=== PATIENT | male | born 1995 | race Asian ===

== ENCOUNTER 2021-02-25 23:01 | Emergency (ER) | payer BC ==
[2021-02-25 23:25] LABS: BASOPHILS % (AUTO) 1 % (0-10); EOSINOPHILS % (AUTO) 3 % (0-10); HEMATOCRIT 44 % (40-54); HEMOGLOBIN 15.3 G/DL (13.3-17.7); LYMPHOCYTES # (AUTO) 4.1 X 10^3 (1.0-4.0); LYMPHOCYTES % (AUTO) 43 % (12-44); MEAN CORPUSCULAR HEMOGLOBIN 30 PG (25-34); MEAN CORPUSCULAR HGB CONC 35 G/DL (32-36); MEAN CORPUSCULAR VOLUME 87 FL (80-99); MEAN PLATELET VOLUME 11.7 FL (7.4-10.4); MONOCYTES # (AUTO) 0.6 X 10^3 (0.0-1.0); MONOCYTES % (AUTO) 6 % (0-12); NEUTROPHILS # (AUTO) 4.3 X 10^3 (1.8-7.8); NEUTROPHILS % (AUTO) 46 % (42-75); PLATELET COUNT 188 10^3/uL (130-400); WHITE BLOOD COUNT 9.4 10^3/uL (4.3-11.0)
[2021-02-25 23:26] LABS: BASOPHILS # (AUTO) 0.1 10^3/uL (0.0-0.1); EOSINOPHILS # (AUTO) 0.2 10^3/uL (0.0-0.3)
[2021-02-25] MEDS ORDERED: PANTOPRAZOLE 40 MG (PROTONIX) VIAL IV STA (23:28)
[2021-02-25] MEDS ORDERED: NS IV 1000 ML 1,000 ML IV STA (23:28)
--- NOTE | 2021-02-25 23:30 | ED Chest Pain ---
General Chief Complaint: Chest Pain Stated Complaint: NUMBNESS IN RIGHT ARM/CHEST PAIN Nursing Triage Note: Pt complaining of chest pain with bilateral arm numbness and tingling Nursing Sepsis Screen: No Definite Risk Source: patient History of Present Illness Date Seen by Provider: Feb 25, 2021 Time Seen by Provider: 23:02 Initial Comments 25-year-old male presenting with complaints of pinching chest pain that has been intermittent throughout the day. He also had an episode earlier today where he had numbness in both arms and had to hide puller while he was driving because of the pain and numbness. He has had some similar symptoms in the past and was evaluated for them. At that time he was told that it was likely anxiety and panic attacks since he had no abnormal findings otherwise. He states he has heartburn symptoms in the morning. He denies any indigestion currently. He has not tried taking anything for the pinching sensation. He denies taking any prescription medications every day. He does take an occasional generic Zyrtec for allergies. He has had elevated blood pressure in the past but it was associated with anxiety and stress. Timing/Duration: 4-6 hours, intermittent Severity/Quality: mild Location: substernal, epigastric Activities at Onset: other (Driving) Prior CP/Workup: non-cardiac (Prior work-up was noncardiac and told that it was anxiety related) Modifying Factors: worse with movement ASA po MARKER MAKER: No NTG SL MARKER MAKER: No Associated Symptoms: No abdominal pain, No back pain, No diaphoresis; dizziness; No edema; fatigue; No fever/chills, No headache; heartburn (In the mornings but not currently); No nausea/vomiting, No rash, No shortness of breath, No swelling/lump in chest, No syncope Allergies and Home Medications Allergies Coded Allergies: No Known Drug Allergies (Unverified , 02/25/21) Patient Home Medication List Home Medication List Reviewed: Yes Review of Systems Review of Systems Constitutional: No chills, No fever EENTM: No Symptoms Reported Respiratory: No Symptoms Reported Cardiovascular: See HPI, Chest Pain (Pinching chest pain in the epigastric area that radiates over to his left lateral chest area) Gastrointestinal: See HPI Genitourinary: No Symptoms Reported Musculoskeletal: no symptoms reported Skin: no symptoms reported Psychiatric/Neurological: Anxiety; Denies Headache; Tingling (Tingling into camryn th arms earlier today while he was driving) Endocrine: No Symptoms Reported Hematologic/Lymphatic: No Symptoms Reported Past Edtvzmq-Fdwhsw-Eimyod Hx Past Med/Social Hx: Reviewed Nursing Past Med/Soc Hx Patient Social History Alcohol Use: Rarely Uses Smoking Status: Never a Smoker Recent Infectious Disease Expo: No Recent Hopitalizations: No Past Medical History Surgeries: No Respiratory: No Cardiac: No Neurological: No Genitourinary: No Gastrointestinal: No Musculoskeletal: No Endocrine: No HEENT: No Cancer: No Psychosocial: No Integumentary: No Physical Exam Vital Signs Vital Signs - First Documented 02/25/21 23:04 Temp 37.1 Pulse 118 Resp 18 B/P (MAP) 170/94 (119) Pulse Ox 100 O2 Delivery Room Air Capillary Refill : Less Than 3 Seconds Height, Weight, BMI Height: '" Weight: lbs. oz. kg; BMI Method: General Appearance: Anxious HEENT: PERRL/EOMI, Pharynx Normal Neck: Full Range of Motion, Non Tender, Supple Respiratory: Chest Non Tender, Lungs Clear, Normal Breath Sounds, No Accessory Muscle Use, No Respiratory Distress Cardiovascular: No Murmur, Normal Peripheral Pulses, Tachycardia Gastrointestinal: Normal Bowel Sounds, No Pulsatile Mass, Non Tender, Soft Rectal: Deferred Extremity: Normal Capillary Refill, No Pedal Edema Neurologic/Psychiatric: Alert, Oriented x3 Skin: Normal Color, Warm/Dry Progress/Results/Core Measures Results/Orders Lab Results Laboratory Tests Test 02/25/21 23:09 02/25/21 23:35 Range/Units White Blood Count 9.4 4.3-11.0 10^3/uL Red Blood Count 5.05 4.35-5.85 10^6/uL Hemoglobin 15.3 13.3-17.7 G/DL Hematocrit 44 40-54 % Mean Corpuscular Volume 87 80-99 FL Mean Corpuscular Hemoglobin 30 25-34 PG Mean Corpuscular Hemoglobin Concent 35 32-36 G/DL Red Cell Distribution Width 12.6 10.0-14.5 % Platelet Count 188 130-400 10^3/uL Mean Platelet Volume 11.7 H 7.4-10.4 FL Immature Granulocyte % (Auto) 1 % Neutrophils (%) (Auto) 46 42-75 % Lymphocytes (%) (Auto) 43 12-44 % Monocytes (%) (Auto) 6 0-12 % Eosinophils (%) (Auto) 3 0-10 % Basophils (%) (Auto) 1 0-10 % Neutrophils # (Auto) 4.3 1.8-7.8 X 10^3 Lymphocytes # (Auto) 4.1 H 1.0-4.0 X 10^3 Monocytes # (Auto) 0.6 0.0-1.0 X 10^3 Eosinophils # (Auto) 0.2 0.0-0.3 10^3/uL Basophils # (Auto) 0.1 0.0-0.1 10^3/uL Immature Granulocyte # (Auto) 0.1 0.0-0.1 10^3/uL Prothrombin Time 12.8 12.2-14.7 SEC INR Comment 0.9 0.8-1.4 Activated Partial Thromboplast Time 22 L 24-35 SEC D-Dimer 0.16 0.00-0.49 UG/ML Sodium Level 143 135-145 MMOL/L Potassium Level 4.8 3.6-5.0 MMOL/L Chloride Level 104 98-107 MMOL/L Carbon Dioxide Level 25 21-32 MMOL/L Anion Gap 14 5-14 MMOL/L Blood Urea Nitrogen 12 7-18 MG/DL Creatinine 1.14 0.60-1.30 MG/DL Estimat Glomerular Filtration Rate > 60 BUN/Creatinine Ratio 11 Glucose Level 113 H 70-105 MG/DL Calcium Level 10.3 H 8.5-10.1 MG/DL Corrected Calcium 8.5-10.1 MG/DL Magnesium Level 2.1 1.6-2.4 MG/DL Total Bilirubin 0.4 0.1-1.0 MG/DL Aspartate Amino Transf (AST/SGOT) 57 H 5-34 U/L Alanine Aminotransferase (ALT/SGPT) 85 H 0-55 U/L Alkaline Phosphatase 66 40-136 U/L Troponin I < 0.30 <0.30 NG/ML Pro-B-Type Natriuretic Peptide 33.1 <75.0 PG/ML Total Protein 7.8 6.4-8.2 GM/DL Albumin 4.9 H 3.2-4.5 GM/DL Lipase 26 8-78 U/L Urine Color YELLOW Urine Clarity CLEAR Urine pH 7.0 5-9 Urine Specific [place] 1.020 1.016-1.022 Urine Protein NEGATIVE NEGATIVE Urine Glucose (UA) NEGATIVE NEGATIVE Urine Ketones NEGATIVE NEGATIVE Urine Nitrite NEGATIVE NEGATIVE Urine Bilirubin NEGATIVE NEGATIVE Urine Urobilinogen 0.2 < = 1.0 MG/DL Urine Leukocyte Esterase NEGATIVE NEGATIVE Urine RBC (Auto) NEGATIVE NEGATIVE Urine RBC 0-2 /HPF Urine WBC 0-2 /HPF Urine Crystals NONE /LPF Urine Bacteria TRACE /HPF Urine Casts NONE /LPF Urine Mucus MODERATE H /LPF Urine Culture Indicated NO Urine Opiates Screen NEGATIVE NEGATIVE Urine Oxycodone Screen NEGATIVE NEGATIVE Urine Methadone Screen NEGATIVE NEGATIVE Urine Propoxyphene Screen NEGATIVE NEGATIVE Urine Barbiturates Screen NEGATIVE NEGATIVE Ur Tricyclic Antidepressants Screen NEGATIVE NEGATIVE Urine Phencyclidine Screen NEGATIVE NEGATIVE Urine Amphetamines Screen NEGATIVE NEGATIVE Urine Methamphetamines Screen NEGATIVE NEGATIVE Urine Benzodiazepines Screen NEGATIVE NEGATIVE Urine Cocaine Screen NEGATIVE NEGATIVE Urine Cannabinoids Screen NEGATIVE NEGATIVE My Orders Orders - RAMYA WISEMAN MD Cbc With Automated Diff (02/25/21 23:06) Magnesium (02/25/21 23:06) Ekg Tracing (02/25/21 23:06) Comprehensive Metabolic Panel (02/25/21 23:06) Protime With Inr (02/25/21 23:06) Partial Thromboplastin Time (02/25/21 23:06) O2 (02/25/21 23:06) Monitor-Rhythm Ecg Trace Only (02/25/21 23:06) Ed Iv/Invasive Line Start (02/25/21 23:06) Lipase (02/25/21 23:06) Troponin I Fs (02/25/21 23:06) Probnp Fs (02/25/21 23:06) Fibrin Degradation Products (02/25/21 23:06) Ua Culture If Indicated (02/25/21 23:06) Chest 1 View Ap/Pa Only (02/25/21 23:27) Ns Iv 1000 Ml (Sodium Chloride 0.9%) (02/25/21 23:28) Pantoprazole Injection (Protonix Injecti (02/25/21 23:28) Drug Screen Stat (Urine) (02/25/21 23:58) Rx-Lorazepam (Rx-Ativan) (02/26/21 00:30) Vital Signs/I&O 02/25/21 02/26/21 23:04 00:08 Temp 37.1 Pulse 118 107 Resp 18 16 B/P (MAP) 170/94 (119) 148/87 Pulse Ox 100 99 O2 Delivery Room Air Room Air Blood Pressure Mean: 119 Progress Progress Note #1: Progress Note Obtain electrocardiogram and IV access. Check labs for electrolytes as well as blood count and cardiac enzymes. Urinalysis to look at hydration. Try IV fluids for his heart rate. Protonix for the pinching sensation and history of indigestion. His blood pressure was improving with rest in the bed. Placed on cardiac telemetry monitoring for his chest pain and palpitations. Initial telemetry shows sinus tachycardia without ectopy. Differential diagnosis hypertension, anxiety attack, acute coronary syndrome, pulmonary embolism, pneumonia, myocardial infarction, electrolyte imbalance Progress Note #2: Time: 23:49 Progress Note CBC does not show any acute significant normality. His chemistry shows mild elevation of the ALT and AST. His troponin is less than 0.3. His urinalysis does not show infection but his specific gravity is 1.020. Considering that he has had intermittent chest pain throughout the day and tingling into his arms this may still be related back to anxiety and some hydration. His negative troponin after having symptoms throughout the day is reassuring. Progress Note #3: Time: 23:58 Progress Note Coags and D dimer without acute significant abnormality. Reassure pt and discharge to follow up with clinic. Advised that labs and ECG have not shown heart attack or acute heart damage. He has had some tachycardia but seems to be triggered by stress or anxiety and does quickly improve. UA shows mild dehydration. Advised to establish care and follow up with clinic for continued concerns Progress Note #4: Time: 00:28 Progress Note when reviewing test results and discussing discharge plan with pt he felt he might need something to help with continued anxiety. Counseled on some meditation and centering techniques he could try and give handout about anxiety and stress. Send with Take Home pack of Ativan 0.5 mg po bid prn anxiety # 4. He reports having new doctor visit to establish care in 2 weeks so advised him to see about having medical records call to get chart and labs sent to his new doc. Initial ECG Impression Date: Feb 25, 2021 Initial ECG Impression Time: 23:09 Initial ECG Rate: 120 Initial ECG Rhythm: S.Tach Initial ECG Comparisson: No Previous ECG Available Comment Sinus tachycardia with a heart rate of 120 bpm. MS interval [address] elevation. No prior tracing for comparison. QT interval 320 ms with a QTc interval of 453 ms. Diagnostic Imaging Diagonstic Imaging: Xray Plain Films/CT/US/NM/MRI: chest Comments On my review of the 1 view chest x-ray there is no acute infiltrate or effusion. Poor inspiratory effort. No cardiomegaly. Reviewed: Reviewed by Me Departure Impression Primary Impression: Sinus tachycardia Additional Impressions: Heart palpitations Stress reaction Anxiety attack Disposition: HOME, SELF-CARE Condition: Stable Departure-Patient Inst. Decision time for Depature: 00:06 Referrals: NO,LOCAL PHYSICIAN (PCP) Primary Care Physician [facility] [place] Patient Instructions: Anxiety, Adult ED, Tachycardia (DC), Stress, Palpitations (DC) Add. Discharge Instructions: Stay well hydrated with water and electrolyte drinks. Avoid carbonated drinks and caffeinated drinks. Follow a balanced healthy diet. Establish care with clinic and follow up with provider for continued care and management All discharge instructions reviewed with patient and/or family. Voiced un derstanding. RAMYA WISEMAN MD Feb 25, 2021 23:30
[2021-02-25 23:42] LABS: ALANINE AMINOTRANSFERASE 85 U/L (0-55); ALBUMIN 4.9 GM/DL (3.2-4.5); ALKALINE PHOSPHATASE 66 U/L (40-136); BILIRUBIN,TOTAL 0.4 MG/DL (0.1-1.0); BUN/CREATININE RATIO 11; CALCIUM 10.3 MG/DL (8.5-10.1); CARBON DIOXIDE 25 MMOL/L (21-32); CHLORIDE 104 MMOL/L (98-107); CREATININE SERUM 1.14 MG/DL (0.60-1.30); GFR ESTIMATED > 60; GLUCOSE 113 MG/DL (70-105); LIPASE 26 U/L (8-78); MAGNESIUM 2.1 MG/DL (1.6-2.4); POTASSIUM 4.8 MMOL/L (3.6-5.0); SODIUM 143 MMOL/L (135-145); TOTAL PROTEIN 7.8 GM/DL (6.4-8.2)
[2021-02-25 23:47] LABS: BACTERIA,URINE TRACE /HPF; BILIRUBIN,URINE NEGATIVE (NEGATIVE); CLARITY,URINE CLEAR; COLOR,URINE YELLOW; GLUCOSE, URINE (UA) NEGATIVE (NEGATIVE); KETONES,URINE NEGATIVE (NEGATIVE); LEUKOCYTE ESTERASE ,URINE NEGATIVE (NEGATIVE); NITRITE,URINE NEGATIVE (NEGATIVE); PROTEIN,URINE NEGATIVE (NEGATIVE); RBC,URINE 0-2 /HPF; WBC,URINE 0-2 /HPF
[2021-02-25 23:54] LABS: FIBRIN DEGRADATION PRODUCTS 0.16 UG/ML (0.00-0.49); INR 0.9 (0.8-1.4); PROTHROMBIN TIME PATIENT 12.8 SEC (12.2-14.7)
[2021-02-26 00:01] LABS: AMPHETAMINE SCREEN, URINE NEGATIVE (NEGATIVE); BARBITURATE SCREEN URINE NEGATIVE (NEGATIVE); BENZODIAZEPINES SCREEN URINE NEGATIVE (NEGATIVE); CANNABINOID SCREEN, URINE NEGATIVE (NEGATIVE); COCAINE SCREEN URINE NEGATIVE (NEGATIVE); METHADONE STAT NEGATIVE (NEGATIVE); METHAMPHETAMINE SCREEN URINE S NEGATIVE (NEGATIVE); OPIATE SCREEN URINE NEGATIVE (NEGATIVE); OXYCODONE STAT NEGATIVE (NEGATIVE); PROPOXYPHENE STAT NEGATIVE (NEGATIVE); TRICYCLIC ANTIDEPRESSANTS SCRE NEGATIVE (NEGATIVE)
[2021-02-26 00:08] VITALS: BP 148/87
[2021-02-26] MEDS ORDERED: RX-LORAZEPAM (ATIVAN) 0.5 MG TAB PPK#4 PO PRN (00:30)
--- NOTE | 2021-02-26 07:15 | Diagnostic Imaging Report ---
EXAMINATION: Chest 1 view HISTORY: Chest pain. Right arm numbness. COMPARISON: None available. FINDINGS: The lung volumes are normal. No focal consolidation is seen. No large pleural effusion or pneumothorax is seen. The cardiomediastinal silhouette is normal in size and contour. No acute osseous abnormality is seen. IMPRESSION: 1. No acute pleuroparenchymal process. Dictated by: Dictated on workstation # [id number]
== END 2021-02-26 00:10 | disposition home or self-care (01) ==
LOC: ER FS 23:09
DX: R00.0 Tachycardia, unspecified (principal); R00.2 Palpitations; F43.9 Reaction to severe stress, unspecified; F41.9 Anxiety disorder, unspecified; I10 Essential (primary) hypertension
CPT/HCPCS: 36415; 71045; 80053; 80306; 81000; 83690; 83735; 83880; 84484; 85025; 85379; 85610; 85730; 93005; 93041